=== PATIENT | male | born 1945 | race Caucasian/White ===

== ENCOUNTER 2022-02-08 07:48 | Day surgery (SDC) | payer OTHER ==
--- NOTE | 2022-02-02 12:17 | RAD REPORT ---
EXAM DESCRIPTION: Lyssa Pa And Lat (2 Views)02/02/2022 12:11 pm CLINICAL HISTORY: Hypertension/prostate cancer Pre op pending TURBT COMPARISON: None FINDINGS: Lungs are mildly to moderately hyperaerated. The lungs appear clear of acute infiltrate. The heart is normal size IMPRESSION: No acute abnormalities displayed
[2022-02-02 13:07] LABS: Protime INR 0.89
--- NOTE | 2022-02-03 07:53 | EKG ---
Test Date: 2022-02-02 Test Time: 10:46:06 Silk Top Hat Body Maker: CEDRICK MEASUREMENT RESULTS: Intervals: Rate: 48 RI: 202 QRSD: 102 QT: 472 QTc: 421 [place]: P: 68 RI: 202 QRS: 20 T: 18 INTERPRETIVE STATEMENTS: Marked sinus bradycardia Abnormal ECG No previous ECG available for comparison Electronically Signed On 02-03-22 07:52:34 CDT by Abel Brown
[2022-02-08] MEDS ORDERED: NA CHLORIDE 0.9% 1,000 ML ONE (08:27)
[2022-02-08] MEDS ORDERED: NA CHLORIDE 0.9% 50 ML ONE (08:27)
[2022-02-08] MEDS ORDERED: CEFAZOLIN SODIUM 1 GM/VIAL ONE ×2 (08:27→10:15)
[2022-02-08] MEDS ORDERED: HYDRALAZINE HCL 20 MG/ML VIAL ONE ×2 (08:40→08:41)
[2022-02-08 09:37] VITALS: O2SAT 98
[2022-02-08] MEDS ORDERED: LIDOCAINE 1% MPF 5 ML VIAL ONE (09:46)
[2022-02-08] MEDS ORDERED: FENTANYL CITR 100 MCG/2 ML ONE (09:46)
[2022-02-08] MEDS ORDERED: propofoL 200 MG/20 ML VIAL IV ONE (09:46)
[2022-02-08] MEDS ORDERED: NS 0.9% VIAL 10 ML ONE ×2 (10:16→10:34)
[2022-02-08] MEDS ORDERED: KETOROLAC 30 MG/ML INJ ONE (10:18)
[2022-02-08] MEDS ORDERED: dexAMETHasone 10 MG/ML VIAL ONE (10:18)
[2022-02-08] MEDS ORDERED: EPHEDRINE SULF 50 MG/ML VIAL ONE (10:34)
[2022-02-08] MEDS ORDERED: ONDANSETRON 4 MG/2 ML VIAL ONE (10:34)
[2022-02-08 11:14] VITALS: TEMP 97
[2022-02-08] MEDS ORDERED: CODEINE 30MG/APAP 300MG TAB PO PRN (11:17)
[2022-02-08 11:52] VITALS: BP 165/57
--- NOTE | 2022-02-09 09:41 | OP ---
Surgeon: GI CANDELARIO Preoperative Diagnoses: 1.Bladder tumor. 2.History of prostate cancer with suspected clinical recurrence and bone metastases. Postoperative Diagnoses: 1.Bladder tumor. 2.History of prostate cancer with suspected clinical recurrence and bone metastases. Principal Procedure: Cystoscopy and transurethral resection of a bladder tumor. Indication For Procedure: Mr. Ford is a 77-year-old gentleman with hypertension, type 2 diabete s, hypercholesterolemia with history of radical retropubic prostatectomy performed 12 years ago at [facility] with evidence of clinical recurrence of his prostate cancer associated with an apparent PSA doubling time of less than 6 months to 1 year, PSA currently 47.8, with likely left intravesical recurrence of the prostate cancer causing left ureteral orifice obstruction and suspected bone metas tases. A CT scan of the abdomen and pelvis was performed on 10/05/2022 revealing no suspicious lesio ns within the adrenal, but 14 mm right upper pole renal lesion which is intermediate attenuation on p recontrast and does not enhance post contrast. This was consistent with a proteinaceous or hemorrhag ic cyst. There was moderate left-sided hydroureteronephrosis. His creatinine was 1.27. As a result , I counseled the patient on the need for TURBT to confirm that the intravesical mass seen was prosta te cancer as I suspected, and we initiated Casodex 50 mg daily with followup plan to initiate Eligard or Zoladex to initiate androgen deprivation therapy. Since his renal function was preserved, I held off on the left percutaneous nephrostomy tube, but I counseled the patient in the preoperative holdi ng area that this may need to be placed. If after resection of the hydronephrosis persisted while we treat the prostate cancer. Procedure In Detail: The patient was consented in the preoperative holding area before being transfe rred to the operative suite where general anesthesia was induced. He received 2 g of Ancef IV antimi crobial prophylaxis and Pneumoboots were provided for DVT prophylaxis. He was placed in the lithotom y position, padded and secured to the table appropriately. His genitalia were prepped using Hibiclen s and he was draped in standard fashion. The case was begun using urethral sounds to dilate the meat us and fossa navicularis to 30-Haitian. Then, using the visual obturator and resectoscope, the urethr a was traversed until the bladder was entered. At the level of the bladder neck as previously had be en discussed, there was a very nodular appearing tumor emanating into the bladder and obscuring the l eft hemitrigone. I was eventually able to visualize the right ureteral orifice, but the left uretera l orifice was occupied by this very bulbous and lobular appearing tumor. The size of the tumor was l ikely greater than 5 cm. I thus began resection of the tumor down to the level of the bladder neck a nd was subsequently as I indicated earlier able to see the right ureteral orifice. Careful fulgurati on of the bladder base/base of the tumor was performed only in a pinpoint nature to fulgurate any ble eding vessels. Because the ureteral orifice was not distinctly visible, I did not want to fulgurate generally throughout the region; so, careful fulguration was performed at multiple different iteratio ns with the bladder decompressed. Ellik evacuation of all of the tumor chips was performed to remove them, and the chips were sent for pathologic analysis. In the end, there was a much more patent ent ry into the bladder, though there was some residual mild nodular tissue at the most distal location o f the bladder neck. This was not extensively resected as again I suspected this to be prostate cance r. In the end, with his bladder decompressed, there was no significant ongoing oozing of blood, and all chips were had been removed. So, I left this bladder full and removed the resectoscope. I then placed a 20-Haitian coude tipped urethral Downing catheter into his bladder with ease and placed 25 cc o f sterile water into the balloon. The catheter was connected to a leg bag and the patient was taken out of the lithotomy position. He was awakened from general anesthesia, transferred to a stretcher, and then transferred to the recovery room in good condition. Complications: None. Discharge Disposition: He should follow up in the Urology Clinic for Eligard or Zoladex if he has no t already received his initial injection as the Casodex was initiated back on 12/29/2021. Subsequent ly, we will reassess his PSA in 3-6 months to assess treatment success. He should follow up with me in the Urology Clinic in 2-3 weeks time to discuss the results of the pathology, and we will recheck his renal function and perform an ultrasound at that time to assess for ongoing hydronephrosis. If p ersistent hydronephrosis or decline in his renal function, we may consider left percutaneous nephrost kate tube at that time. DRE/HYUN Voice ID: [id number] Report ID: [id number]
== END 2022-02-08 12:42 | disposition home or self-care (01) ==
LOC: OR 07:48
PROVIDERS: ATTEND Urology
PROC: 0TBB8ZX Excision of Bladder, Via Natural or Artificial Opening Endoscopic, Diagnostic (ICD-10-PCS; principal; 2022-02-08 08:45)
DX: C79.11 Secondary malignant neoplasm of bladder (principal); C79.51 Secondary malignant neoplasm of bone; I10 Essential (primary) hypertension; E11.9 Type 2 diabetes mellitus without complications; E78.00 Pure hypercholesterolemia, unspecified; N13.9 Obstructive and reflux uropathy, unspecified; Z20.822 Contact with and (suspected) exposure to COVID-19; Z85.46 Personal history of malignant neoplasm of prostate
CPT/HCPCS: 52240; 93005; 87088; 87086; 36415; 85610; 82947 ×2; 88307; 71046; U0002; J0360 ×2; J2704; J3010; J1100; J7030; J2405; J0690 ×2; 88305

== ENCOUNTER → 2023-10-20 | Emergency (ER) | payer OTHER ==
[~2023-10-20] MED LIST: GABAPENTIN 300 MG CAP ONE
--- OUTSIDE RECORDS SUMMARY | 2023-10-20 10:06 | XMS REPORT | Continuity of Care Document ---
Author Name Unknown Address [address] [place] [address] [facility] Address [address] [place] [address] Care Team Providers Care House Wrecker Name Role Phone MEHUL, DR VIOLET DUTTON Attending Clinician U gretchen HYDE, DR MARINO Attending Clinician Demario CARVER, DR VIOLET DUTTON Admitting Clinician U gretchen HYDE, DR MARINO Admitting Clinician Demario e Payers Payer Name Policy Type Policy Number Effective Date Expirati on Date Source [id number] 1959 00:00:00 Allergies, Adverse Reactions, Alerts Allergy Name Allergy Type Status Severity Reaction(s) Onset Date Inactive Date Treating Clinician Comments Source No Known Drug Allergie s DA Active [facility] Vital Signs Vital Name Observation Time Observation Value Comments S ource Height 2022-09-19 06:00:00 177.8 CM Weight 2022-09-19 06:00:00 83.91 KG Height 2022-09-05 06:26:00 182.88 CM Weight 2022-09-05 06:26:00 83.91 KG Procedures Procedure Date / Time Performed Performing Clinicia n Source REPLACE RT LENS SYNTH SUBST PERQ 2022-09-19 00:00:00 [facility] Encounters Start Date/Time End Date/Time Encounter Type Admission Type Attending Clinicians Care Facility Care Department Encounter ID Source 2022-09-19 06:05:00 2022-09-19 12:53:00 Outpatient VIOLET HIGGINBOTHAM [facility] [id number] [facility] 2017-03-10 09:40:00 2017-03-10 23:59:00 Outpatient Ron JAMILA HYDE [facility] RAD [id number] [facility] Results Test Description Test Time Test Comments Results Result Co mments Source XR ESOPH(MODIFIED BARIUM SWALLOW)2017-03-10 10:53:32Modified barium swallow: Fluoroscopy time was 44.3 seconds.HISTORY: Pneumonitis due to inhalation of food and vomitCOMPARISON: None.COMMENT: Fluoroscopy was provided for speech therapy with visualization ofliquid and solid food ingestion. Normal oral phase of the examination. Therewas premature spillage identified with the chopped fruit however there was noevidence of laryngeal penetration or aspiration.IMPRESSION: Some premature spillage seen with the chopped fruit. The study wasotherwise unremarkable. No evidence of penetration or aspiration.
[2023-10-20 11:00] LABS: MCV 89.7 fL (80-100); MPV 8.7 fL (7.6-11.3); Platelets 465 thou/uL (152-406); RBC Red Blood Cell Count 3.12 M/uL (4.33-5.43)
[2023-10-20 12:49] LABS: ALT/SGPT 360 U/L (16-61); AST/SGOT 438 U/L (15-37); Albumin 1.6 g/dL (3.4-5.0); BUN Blood Urea Nitrogen 17 mg/dL (7-18); Bicarbonate 21 mEq/L (21-32); Glomerular Filtration Rate 66 ml/min (=/>90); Glucose Level 128 mg/dL (74-106); Lipase 186 U/L (13-75); Potassium 3.3 mEq/L (3.5-5.1); Protein, Total 5.7 g/dL (6.4-8.2); Sodium Level 135 mEq/L (136-145)
[2023-10-20 13:13] LABS: Alkaline Phosphatase > 2272 U/L (45-117); Bilirubin Total 23.2 mg/dL (0.2-1.0)
[2023-10-20 13:35] LABS: Anisocytosis 1+; Blood Morphology Comment NOTED (NOT SEEN); Platelet Estimate INCR; Target Cells 1+
--- NOTE | 2023-10-20 14:34 | ER ---
Nurse's Notes [facility] Name: Rao Ford Age: 78 yrs Sex: Male : 1945 Arrival Date: 10/20/2023 Time: 10:03 Bed 5 Private MD: Diagnosis: Unspecified jaundice Presentation: 10/20 10:10 Chief complaint: Patient's son or daughter states: skin has been yellow X 2 weeks , hx iw of prostate and bladder cancer , was heavy drinker in past X 7 years ago, daughter reports he had cirrhosis in past. Coronavirus screen: At this time, the client does not indicate any symptoms associated with coronavirus-19. Ebola Screen: Patient negative for fever greater than or equal to 101.5 degrees Fahrenheit, and additional compatible Ebola Virus Disease symptoms Patient denies exposure to infectious person. Patient denies travel to an Ebola-affected area in the 21 days before illness onset. No symptoms or risks identified at this time. Initial Sepsis Screen: Does the patient meet any 2 criteria? No. Patient's initial sepsis screen is negative. Does the patient have a suspected source of infection? No. Patient's initial sepsis screen is negative. Risk Assessment: Do you want to hurt yourself or someone else? Patient reports no desire to harm self or others. Onset of symptoms was October 06, 2023. 10:10 Method Of Arrival: Wheelchair iw 10:10 Acuity: TERRA 3 iw Triage Assessment: 10:15 General: Appears in no apparent distress. JAUNDICED. Behavior is cooperative, bp appropriate for age, IRRITABLE. Pain: Denies pain. Derm: Skin is jaundiced. Historical: - Allergies: 10:12 No Known Allergies; iw - PMHx: 10:12 bladder cancer; prostate cancer; Diabetes mellitus; Hypertensive disorder; iw - PSHx: 10:12 tumor removed from bladder; iw - Immunization history:: Adult Immunizations not up to date. - Social history:: Smoking status: Patient reports the use of cigarette tobacco products. Screenin:40 [facility] ED Fall Risk Assessment (Adult) History of falling in the last 3 months, ko1 including since admission No falls in past 3 months (0 pts) Confusion or Disorientation No (0 pts) Intoxicated or Sedated No (0 pts) Impaired Gait No (0 pts) Mobility Assist Device Used No (0 pt) Altered Elimination No (0 pt) Score/Fall Risk Level 0 - 2 = Low Risk Oriented to surroundings, Maintained a safe environment, Educated pt \T\ family on fall prevention, incl call for assistance when getting out of bed, Assessed \T\ reinforced patient's understanding of fall precautions, Provided non-skid footwear, Hourly rounding (assess needs \T\ fall precautionary measures) done, Used ambulatory aids as needed (educated on \T\ assisted with), Used gait belt as appropriate. Abuse screen: Denies threats or abuse. Denies injuries from another. Nutritional screening: No deficits noted. Tuberculosis screening: No symptoms or risk factors identified. Assessment: 10:40 General: Appears in no apparent distress. Behavior is cooperative, appropriate for age. ko1 Pain: Denies pain. Neuro: No deficits noted. Cardiovascular: No deficits noted. Respiratory: No deficits noted. GI: No deficits noted. : Parent/caregiver report the patient having incontinence. EENT: Sclera/Cornea jaundiced. Reports decreased hearing in left ear and right ear hearing aides. Derm: Skin is jaundiced. Musculoskeletal: No deficits noted. 13:20 Reassessment: No changes from previously documented assessment. Patient is alert, bp oriented x 3, equal unlabored respirations, skin warm/dry/pink. Vital Signs: 10:10 BP 155 / 56; Pulse 63; Resp 16; Temp 97.7; Pulse Ox 100% on R/A; iw 10:40 BP 168 / 68; Pulse 55; Resp 19; Pulse Ox 98% ; ko1 12:16 BP 138 / 60; Pulse 58; Resp 19; Pulse Ox 99% ; ko1 13:20 BP 134 / 57; Pulse 58; Resp 16; Pulse Ox 98% ; bp 16:08 BP 140 / 71; Pulse 59; Resp 17; Pulse Ox 95% ; ko1 ED Course: 10:06 Patient arrived in ED. rg4 10:09 Jose Francisco Perez MD is Attending Physician. kdr 10:12 Triage completed. iw 10:13 Arm band placed on. iw 10:19 Tk Castle, ILAN is Primary Nurse. bp 10:40 Patient has correct armband on for positive identification. Bed in low position. Call ko1 light in reach. Side rails up X2. Pulse ox on. NIBP on. Door closed. Noise minimized. Lights dimmed. Warm blanket given. Pillow given. 10:44 Inserted saline lock: 20 gauge in right antecubital area, using aseptic technique. ko1 Blood collected. 10:45 AMMONIA Sent. ko1 10:45 CBC with Diff Sent. ko1 10:45 CMP Sent. ko1 10:45 Lipase Sent. ko1 11:42 initiated a transfer with Travis from the [place] transfer center at the request of the provider. 14:30 administrative approval given by Kisha Marin / Dr. Lino Lock accepted the patient at [address] Perez/ patient has been accepted to the [place] ER/ report to be called to [phone] ext [phone]. 16:08 Provided Education on: NA. ko1 16:08 No provider procedures requiring assistance completed. Patient transferred, IV remains ko1 in place. Administered Medications: 16:22 Drug: Gabapentin PO 300 mg PO once Route: PO; Medication: 16:08 VIS not applicable for this client. ko1 Outcome: 14:34 ER care complete, transfer ordered by . kdr 16:08 Transferred by ground EMS [place]. to [facility] Transfer ko1 form completed. 16:08 Condition: stable 16:08 Instructed on the need for transfer, Demonstrated understanding of instructions, 16:25 Patient left the ED. ko1 Signatures: Jose Francisco Perez MD MD kdr Liss Maciel, RN RN iw Arlette López rg4 Tk Castle, ILAN TALAVERA Merary Kramer Kathy, ILAN RN ko1 Corrections: (The following items were deleted from the chart) 10:49 10:40 EENT: Sclera/Cornea jaundiced. ko1 ko1
--- NOTE | 2023-10-20 14:34 | EDPHYS ---
Physician Documentation [facility] Name: Rao Ford Age: 78 yrs Sex: Male : 1945 Arrival Date: 10/20/2023 Time: 10:03 Bed 5 Private MD: ED Physician Jose Francisco Perez HPI: 10/20 12:43 This 78 yrs old Male presents to ER via Wheelchair with complaints of Jaundice. kdr 12:43 Patient states that since he was started on metformin about 2 weeks ago, he has become kdr increasingly jaundiced appearing. Patient generally feels poorly but has no focal complaints at this time. Patient denies vomiting or nausea or pain. Patient has had slightly different colored stools but denies melena. Patient is nonacute appearing and does not require emergent intervention. Onset: The symptoms/episode began/occurred gradually, 2 week(s) ago. Severity of symptoms: At their worst the symptoms were moderate in the emergency department the symptoms are unchanged. The patient has not experienced similar symptoms in the past. The patient has been recently seen by a physician: the patient's primary care provider. Historical: - Allergies: 10:12 No Known Allergies; iw - PMHx: 10:12 bladder cancer; prostate cancer; Diabetes mellitus; Hypertensive disorder; iw - PSHx: 10:12 tumor removed from bladder; iw - Immunization history:: Adult Immunizations not up to date. - Social history:: Smoking status: Patient reports the use of cigarette tobacco products. ROS: 12:43 Constitutional: Negative for fever, chills, and weight loss, Eyes: Negative for injury, kdr pain, redness, and discharge, Neck: Negative for injury, pain, and swelling, Cardiovascular: Negative for chest pain, palpitations, and edema, Respiratory: Negative for shortness of breath, cough, wheezing, and pleuritic chest pain, Abdomen/GI: Negative for abdominal pain, nausea, vomiting, diarrhea, and constipation, Back: Negative for injury and pain, MS/Extremity: Negative for injury and deformity, Neuro: Negative for headache, weakness, numbness, tingling, and seizure activity. Psych: Negative for depression, anxiety, suicide ideation, homicidal ideation, and hallucinations, Allergy/Immunology: Negative for hives, rash, and allergies, Endocrine: Negative for neck swelling, polydipsia, polyuria, polyphagia, and marked weight changes, Hematologic/Lymphatic: Negative for swollen nodes, abnormal bleeding, and unusual bruising, 12:43 Skin: Positive for jaundice, Negative for avulsion, cellulitis, diaphoresis, lesions, puncture, ulceration, Exam: 12:43 Constitutional: This is a well developed, well nourished patient who is awake, alert, kdr and in no acute distress. Head/Face: Normocephalic, atraumatic. Eyes: Pupils equal round and reactive to light, extra-ocular motions intact. Lids and lashes normal. Conjunctiva and sclera are non-icteric and not injected. Cornea within normal limits. Periorbital areas with no swelling, redness, or edema. Neck: Trachea midline, no thyromegaly or masses palpated, and no cervical lymphadenopathy. Supple, full range of motion without nuchal rigidity, or vertebral point tenderness. No Meningismus. Chest/axilla: Normal chest wall appearance and motion. Nontender with no deformity. No lesions are appreciated. Cardiovascular: Regular rate and rhythm with a normal S1 and S2. No gallops, murmurs, or rubs. Normal PMI, no JVD. No pulse deficits. Respiratory: Lungs have equal breath sounds bilaterally, clear to auscultation and percussion. No rales, rhonchi or wheezes noted. No increased work of breathing, no retractions or nasal flaring. Abdomen/GI: Soft, non-tender, with normal bowel sounds. No distension or tympany. No guarding or rebound. No evidence of tenderness throughout. Back: No spinal tenderness. No costovertebral tenderness. Full range of motion. MS/ Extremity: Pulses equal, no cyanosis. Neurovascular intact. Full, normal range of motion. Neuro: Awake and alert, GCS 15, oriented to person, place, time, and situation. Cranial nerves II-XII grossly intact. Motor strength 5/5 in all extremities. Sensory grossly intact. Cerebellar exam normal. Normal gait. Psych: Awake, alert, with orientation to person, place and time. Behavior, mood, and affect are within normal limits. 12:43 Skin: Appearance: Color: jaundiced, induration, is not appreciated, injury, is not appreciated, no rash present. Vital Signs: 10:10 BP 155 / 56; Pulse 63; Resp 16; Temp 97.7; Pulse Ox 100% on R/A; iw 10:40 BP 168 / 68; Pulse 55; Resp 19; Pulse Ox 98% ; ko1 12:16 BP 138 / 60; Pulse 58; Resp 19; Pulse Ox 99% ; ko1 13:20 BP 134 / 57; Pulse 58; Resp 16; Pulse Ox 98% ; bp 16:08 BP 140 / 71; Pulse 59; Resp 17; Pulse Ox 95% ; ko1 MDM: 12:43 Data reviewed: vital signs, nurses notes, lab test result(s). kdr 12:47 ED course: Patient remained stable in the ED. kdr 14:34 Patient medically screened. kdr 10/20 10:09 Order name: CBC with Diff; Complete Time: 14:26 kdr 10/20 10:09 Order name: CMP; Complete Time: 14:26 kdr 10/20 10:09 Order name: Lipase; Complete Time: 14:26 kdr 10/20 10:09 Order name: Urinalysis w/ reflexes kdr 10/20 10:20 Order name: AMMONIA; Complete Time: 11:28 bp 10/20 11:19 Order name: Manual Differential; Complete Time: 14:26 EDMS 10/20 14:43 Order name: CT; Complete Time: 15:19 EDMS 10/20 10:09 Order name: IV Saline Lock; Complete Time: 10:45 kdr 10/20 10:09 Order name: Labs collected and sent; Complete Time: 10:45 kdr 10/20 11:52 Order name: Labs - recollect needed: recollect green hemolyzed per laney; Complete eb Time: 12:12 Administered Medications: 16:22 Drug: Gabapentin PO 300 mg PO once Route: PO; iw Disposition Summary: 10/20/23 14:34 Transfer Ordered Notes: Transfer Location: [facility] kdr Reason: Higher level of care kdr Condition: Fair kdr Problem: new kdr Symptoms: are unchanged kdr Accepting Physician: Lino Lock(10/20/23 16:25) ko1 Diagnosis - Unspecified jaundice kdr Forms: - Medication Reconciliation Form kdr - SBAR form kdr Signatures: Dispatcher [employer] EDMS Jose Francisco Perez MD MD kdr Liss Maciel RN RN iw Merary Kramer Kathy RN RN ko1 Corrections: (The following items were deleted from the chart) 16:25 14:34 Lino Lock kdr ko1
--- NOTE | 2023-10-20 14:42 | RAD REPORT ---
EXAM DESCRIPTION: CT - Abdomen Pelvis W Contrast - 10/20/2023 1:49 pm CLINICAL HISTORY: jaundice COMPARISON: Abdomen Pelvis W/Wo Contrast dated 12/06/2021 TECHNIQUE: Thin cut axial CT imaging of the abdomen and pelvis was performed following intravenous a dministration of 100 mL Isovue 300. Multiplanar reformats were generated and reviewed. All CT scans are performed using dose optimization technique as appropriate and may include automated exposure control or mA/KV adjustment according to patient size. FINDINGS: No suspicious findings in the lung bases. The demonstrates pronounced intrahepatic biliary radicle dilation. Heterogeneous hypoattenuating mass at the head and neck of the pancreas measuring 5.6 x 4.4 cm, results in marked common bile duct dila tion with abrupt termination at the level of the mass. Common bile duct measures 2.5 cm in caliber. T here is obstruction of the main pancreatic duct as well, with dilated duct at the level of the pancre atic body measuring 7 mm in caliber. Spleen, and adrenal glands show no suspicious findings. Gallblad margarita is markedly distended with mild pericholecystic edema. No radiopaque gallbladder calculi Symmetric renal function is seen with stable severe left hydronephrosis and hydroureter. Exophytic ri ght upper to mid pole ovoid mildly hyperdense lesion measuring 1.5 cm is stable and could represent a small mass versus cyst with hemorrhagic or proteinaceous content. No dilated bowel loops or bowel wall thickening. No free air, free fluid or inflammatory stranding. N o hernia, mass or bulky lymphadenopathy. The urinary bladder demonstrates a nodular enhancing mass al dutch the posterior bladder wall extending to the neck, measuring 3.8 cm in greatest axial dimension an d 2.4 cm in thickness, decreased in size since the prior exam. The degree of left hydroureteronephros is may relate to the presence of the mass, or a stricture at the vesicoureteral junction. Progressively increased size and number of sclerotic lesions throughout the included axial skeleton, without evidence of a pathologic fracture. Mild superior endplate compression deformity at T12 is sta ble. Few sclerotic lesions in the femoral head/ neck bilaterally as well. . IMPRESSION: New heterogeneous 5.6 cm pancreatic mass, results in distal common bile duct obstruction and dilation with pronounced intrahepatic biliary ductal dilation. Obstruction and dilation of the m ain pancreatic duct proximal to the mass as well. Marked gallbladder distention with some pericholecystic fluid. Findings may relate to biliary obstruc tion (Courvoisier sign), although superimposed acute cholecystitis cannot be entirely excluded. Pleas e correlate clinically. Nodular enhancing mass along the posterior bladder wall extending into the neck, may relate to residu al or recurrent bladder malignancy. There is persistent severe left hydroureteronephrosis, which may relate to mass-effect/obstruction at the left vesicoureteric junction, or a stricture. Progressive sclerotic osseous metastatic disease. Other incidental findings as above. The findings were communicated to Scar Castañeda on 10/20/2023 at 14:36 hours.
[2023-10-20 16:59] VITALS: TEMP 97.7
[2023-10-20 17:16] VITALS: BP 140/71; O2SAT 95
== END ==
LOC: ER 10:03
DX: R17 Unspecified jaundice (principal); Z85.46 Personal history of malignant neoplasm of prostate; Z85.51 Personal history of malignant neoplasm of bladder; Z72.0 Tobacco use
CPT/HCPCS: 85025; 36415; 82140; 83690; 80053; 74177; 99285; Q9967